=== PATIENT | male | born 1955 | race Caucasian/White ===

== ENCOUNTER 2016-06-22 07:06 | Day surgery (SDC) | payer OTHER ==
[~2016-06-22] VITALS: Ht 167.6 cm; Wt 85.2 kg
[2016-06-22 07:36] VITALS: Ht 167.6 cm; Wt 85.2 kg
[2016-06-22] MEDS ORDERED: CHLO25TA13 PO (07:54)
[2016-06-22] MEDS ORDERED: ASPI81TA3 PO (07:54)
[2016-06-22] MEDS ORDERED: AMLO-145 PO (07:54)
[2016-06-22] MEDS ORDERED: NEBI5TAB9 PO (07:54)
[2016-06-22] MEDS ORDERED: LISI10TA2 PO (07:54)
[2016-06-22 08:46] VITALS: BP 157/82; PULSE 60; RESP 18
[2016-06-22] MEDS ORDERED: MIDAZOLAM 1 MG/ML 2 ML INJ ONE ×2 (09:20→09:21)
[2016-06-22] MEDS ORDERED: FENTAnyl 50 MCG/ML VIAL ONE (09:20)
[2016-06-22 09:50] VITALS: BP 104/67; PULSE 50; RESP 18
--- NOTE | 2016-06-22 10:50 | GILP ---
DATE OF PROCEDURE: NAME OF PROCEDURES: Colonoscopy and polypectomy. SURGEON: Amberly Tello MD PREOPERATIVE DIAGNOSIS: Screening colonoscopy. POSTOPERATIVE DIAGNOSES 1. Colonoscopy all the way to the cecum. 2. Sigmoid colon polyp was removed using the snare and electrocautery. 3. Diverticulosis of the colon. 4. Internal hemorrhoids. 5. Poor prep making the exam suboptimal. INDICATION FOR THE PROCEDURE: Mr. Curly Ward is a 60-year-old male patient who was scheduled for s creening colonoscopy. The procedure and possible complications are well explained to the patient. The patient understood and consented to the procedure. DESCRIPTION OF PROCEDURE: Under the influence of fentanyl and Versed, the colonoscope was carefully introduced in the rectum and under direct vision, it was advanced all the way to the cecum. FINDINGS: The patient had poor prep making the exam suboptimal. He was noted to have a sigmoid col on polyp and it was removed using the snare and electrocautery. He had diverticulosis of the colon and internal hemorrhoids. He tolerated the procedure very well and there was no complication from the procedure. At the end o f the procedure, he was awake with stable vital signs and he was discharged home to the care of his family. IMPRESSION: 1. Colonoscopy all the way to the cecum. 2. Poor prep making the exam suboptimal. 3. Sigmoid colon polyp was removed using the snare and electrocautery. 4. Diverticulosis of the colon. 5. Internal hemorrhoids. PLAN: Await histopathology report. Because of the poor prep and suboptimal nature of the examinati on, would recommend repeat colonoscopy with better preparation in 2 years. Dictated By: AMBERLY MCKOY/CHET Conf#: [id number] DID#: [id number]
== END 2016-06-22 12:57 | disposition home or self-care (01) ==
LOC: GIL 07:06
PROVIDERS: ATTEND Internal Medicine Gastroenterology
DX: Z12.11 Encounter for screening for malignant neoplasm of colon (principal); K63.5 Polyp of colon; K57.90 Diverticulosis of intestine, part unspecified, without perforation or abscess without bleeding; K64.8 Other hemorrhoids; I10 Essential (primary) hypertension
CPT/HCPCS: 45385; 88305; J2250; J3010; Z7610

== ENCOUNTER 2017-05-26 06:18 | Day surgery (SDC) | END 2017-05-26 10:43 | disposition home or self-care (01) ==

== ENCOUNTER 2018-05-11 07:43 | Day surgery (SDC) | payer OTHER ==
[2018-05-11] VITALS (12 sets, daily range): BP systolic 102–148; BP diastolic 60–82; PULSE 48–58; RESP 11–16; Ht 167.6 cm; Wt 83.0 kg
[~2018-05-11] VITALS: Ht 167.6 cm; Wt 83.0 kg
[~2018-05-11 07:43] MED LIST: AMLO-218 PO; ASPI-903 PO; CHLO25TA2 PO; LIDOCAINE 2% (SDV) 5 ML INJ ONE; LISI40TA3 PO; METF500T24 PO; NEBI5TAB9 PO; SEVOFLURANE 15 MIN ONE
--- NOTE | 2018-05-11 09:23 | HPN ---
Date/Time of Note Date/Time of Note DATE: 05/11/18 TIME: 09:23 Interval H&P Admission Note Pt. seen H&P reviewed: No system changes GUS SMITH DPM May 11, 2018 09:23
--- NOTE | 2018-05-11 09:30 | PREAC ---
Date/Time of Note Date/Time of Note DATE: 05/11/18 TIME: 09:28 Anesthesia Eval and Record Evaluation Time Pre-Procedure Interview DATE: 05/11/18 TIME: 09:28 Age 62 Sex male NPO: 8 hrs Preoperative diagnosis left foot bunion deformity Planned procedure left foot bunionectomy, osteotomy Past Medical History Past Medical History: Includes Cardio: HTN Endo: Diabetes GI: Obesity Surgery & Anesthesia Issues No known issue Meds Anticoagulation: No Beta Inocencio within 24 hr: Yes Reported Medications Lisinopril* (Lisinopril*) 40 Mg Tablet, 40 MG PO DAILY, #30 TAB 05/26/17 Amlodipine Besylate* (Norvasc*) 10 Mg Tablet, 10 MG PO DAILY, TAB 05/26/17 Aspirin* (Aspirin* Chew) 81 Mg Tab.chew, 81 MG PO DAILY, TAB.CHEW 06/22/16 Chlorthalidone* (Chlorthalidone*) 25 Mg Tablet, 25 MG PO DAILY, TAB 06/22/16 Nebivolol* (Bystolic*) 5 Mg Tab, 5 MG PO DAILY, #30 TAB 06/22/16 Discontinued Reported Medications Metformin Hcl* (Metformin Hcl*) 500 Mg Tablet, 500 MG PO WITH BREAKFAST DINNE, #30 TAB 05/26/17 Meds reviewed: Yes Allergies Coded Allergies: No Known Allergy (Unverified , 05/11/18) Allergies Reviewed: Yes Labs/Studies Labs Reviewed: Reviewed by anesthesiologist test: N/A Studies: ECG, CXR Pre-procedure Exam Last vitals Vital Signs Date Temp Pulse Resp B/P (MAP) Pulse Ox O2 O2 Flow FiO2 Time Delivery Rate 05/11/18 97.0 55 16 148/82 97 Room Air 08:36 (104) Airway: Adequate mouth opening, Adequate thyromental dist Mallampati: Mallampati II Teeth: Normal Lung: Normal Heart: Normal ASA Physical Status ASA physical status: 2 Emergency: None Planned Anesthetic General/MAC: LMA Planned Pain Management Parenteral pain med Pre-operative Attestations Prior to commencing anesthesia and surgery, the patient was re-evaluated, there was verification of: *The patient's identity *The results of appropriate recent lab work and preoperative vital signs *The above evaluation not changing prior to induction *Anesthetic plan, risk benefits, alternative and complications discussed with patient/family; questions answered; patient/family understands, accepts and wishes to proceed. ELY MORAN May 11, 2018 09:30
[2018-05-11] MEDS ORDERED: PROPOFOL 20 ML ONE (09:35)
[2018-05-11] MEDS ORDERED: ROCURONIUM 50 MG INJ ONE (09:36)
[2018-05-11] MEDS ORDERED: DEXAMETHASONE 4 MG/ML 1 ML INJ ONE (09:40)
[2018-05-11] MEDS ORDERED: BUPIVACAINE 0.5% (SDV) 30 ML INJ ONE (09:40)
[2018-05-11] MEDS ORDERED: CEFAZOLIN 1 GM INJ ONE ×2 (09:54→10:56)
[2018-05-11] MEDS ORDERED: POVIDONE IODINE 10% 28.4 GM OINT ONE (10:16)
[2018-05-11] MEDS ORDERED: NEOSTIGMINE 3 MG/3 ML SYRINGE ONE (10:57)
[2018-05-11] MEDS ORDERED: GLYCOPYRROLATE 0.4 MG INJ ONE (10:58)
--- NOTE | 2018-05-11 11:04 | SIPON ---
Date/Time of Note Date/Time of Note DATE: 05/11/18 TIME: 11:01 Operative Report Preoperative Diagnosis Hallux abductal valgus with bunion left foot Postoperative Diagnosis Same Operation/Procedure Performed Osteotomy and bunionectomy with fixation first metatarsal left foot Derek osteotomy with fixation proximal phalanx hallux left foot and application of amniotic tissue act as she had active shield Surgeon see signature line assistant signal maintainer None Anesthesia: general Estimated blood loss: minimal (Minimal) Transfusion Required none Specimen Bone Grafts/Implants Zhenai screw headless 2.5 x 14 right stable 10 x 10 and active shield none Complications none GUS SMITH DPM May 11, 2018 11:04
--- NOTE | 2018-05-11 11:09 | PAC ---
Date/Time of Note Date/Time of Note DATE: 05/11/18 TIME: 11:08 Post-Anesthesia Notes Post-Anesthesia Note Last documented vital signs Vital Signs Date Temp Pulse Resp B/P (MAP) Pulse Ox O2 O2 Flow FiO2 Time Delivery Rate 05/11/18 97.0 55 16 148/82 97 Room Air 1108 (104) Activity: WNL Respiratory function: WNL Cardiovascular function: WNL Mental status: Baseline Pain reasonably controlled: Yes Hydration appropriate: Yes Nausea/Vomiting absent: Yes ELY MORAN May 11, 2018 11:09
[2018-05-11] MEDS ORDERED: FENTAnyl 50 MCG/ML VIAL IV PRN ×3 (11:30)
[2018-05-11] MEDS ORDERED: OXYCODONE/ACETAMINOPHEN (5/325) TAB PO PRN ×2 (11:30)
[2018-05-11] MEDS ORDERED: ALBUTEROL 0.083% (NEB) 2.5 MG/3 ML AMP HHN PRN (11:30)
[2018-05-11] MEDS ORDERED: MEPERIDINE 25 MG INJ IV PRN (11:30)
[2018-05-11] MEDS ORDERED: LABETALOL HCL 20MG INJ IV PRN (11:30)
[2018-05-11] MEDS ORDERED: hydrALAzine 20 MG INJ IV PRN (11:30)
[2018-05-11] MEDS ORDERED: HYDROmorphONE 1 MG/5 ML IV SYRINGE IV PRN ×3 (11:30)
[2018-05-11] MEDS ORDERED: METOCLOPRAMIDE 10 MG INJ IV PRN (11:30)
[2018-05-11] MEDS ORDERED: KETOROLAC 30 MG INJ IV PRN (11:30)
[2018-05-11] MEDS ORDERED: ONDANSETRON 4 MG INJ IV PRN (11:30)
[2018-05-11] MEDS ORDERED: EPHEDrine SULFATE 50 MG/5 ML SYG IV PRN (11:30)
[2018-05-11] MEDS ORDERED: DIPHENHYDRAMINE 50 MG INJ IV PRN (11:30)
--- NOTE | 2018-05-11 14:06 | PREOPHP ---
DATE OF ADMISSION: 05/11/2018 PODIATRIC HISTORY AND PHYSICAL: The patient is being admitted to the hospital for elective foot surgery, palliative treatment unsuccessful. Patient has been explained surgery, complications, alternatives and elected to have elective foot surgery. The patient points to the first metatarsophalangeal joint of the left foot. ALLERGIES: THE PATIENT DENIES. MEDICATIONS: Patient taking medication for high blood pressure and diabetes. REVIEW OF SYSTEMS: Negative heart, lung, liver, kidney, thyroid. See any other pertinent history and upper extremity physical exam by Dr. García. PAST MEDICAL HISTORY: Diabetes, being treated and is controlled. SOCIAL HISTORY: Negative for smoking and alcohol. PHYSICAL EXAMINATION: LOEW EXTREMITIES: Shows the DP and PT equal and regular. NEUROLOGICAL: Negative for pathology. DERMATOLOGICAL: Negative for pathology. MUSCULOSKELETAL: X-ray findings show a hallux abductovalgus with bunion, left foot. FINAL DIAGNOSES: Hallux adductus valgus, left foot. Dictated By: GUS COMER/CHET Conf#: [id number] DID#: [id number] MTDD
--- NOTE | 2018-05-11 22:28 | OPR ---
DATE OF OPERATION: 05/11/2018 PREOPERATIVE DIAGNOSIS: Hallux abductovalgus with bunion, left foot. POSTOPERATIVE DIAGNOSIS: Hallux abductovalgus with bunion, left foot. SURGERY: Osteotomy and bunionectomy with fixation, first metatarsal, left foot; Derek osteotomy with fixation proximal phalanx, hallux, left foot; application of Actishield. SURGEON: Gus Brink DPM DESCRIPTION OF PROCEDURE: The patient was brought to the surgical suite, placed in the supine position. The patient is under general anesthesia with pneumatic cuff at midthigh and sterile prep and drape. Findings were consistent with the pre and postoperative diagnosis. The first incision is a dorsomedial longitudinal incision over the 1st metatarsophalangeal joint. Using sharp and blunt dissection, the incision was carried deep. The head of 1st metatarsal was freed of its attachment and the medial eminence was resected. Then, a horizontal V-osteotomy centered in the center of the medial aspect of the 1st metatarsal head with the apex distal and base going proximal to different angles of 60 degrees. Those cuts were through and through and the capital fragment was then moved laterally, impacted the shaft. A K-wire was placed across the shaft and holds the osteotomy in placed and then a [employer] screw, 2.5 x 14 mm, was placed across the K-wire and the K-wire was removed. The osteotomy site was held firm and overhang on the first metatarsal was resected and the first metatarsal was rasped smooth. Next, the attention was turned to the proximal phalanx, which was freed of its attachment at the shaft and an Derek osteotomy was performed with the apex going laterally and the base medially. Its widest part was approximately 3.5 mm. The distal aspect was then impacted upon the base of the proximal phalanx an 8 x 8 [employer] staple was used to stabilize. The area was then cleansed and preoperative condition having been relieved, the area then had a biogenic by [employer] placed over the 1st metatarsal and base of the proximal phalanx and the area was cleansed, and preoperative condition having been relieved, the area was coaptated using 3-0 Vicryl and the skin was coaptated using 5-0 Nylon. The area was then injected with 0.5% Marcaine to prolong anesthesia and a dressing of 1/2-inch Steri- Strips, Betadine ointment, 4 x 4's impregnated with Betadine solution and Demetria with an outer layer of Coban made into a semi-compressive dressing. The patient tolerated surgery well and was returned to recovery room in satisfactory condition. Dictated By: GUS COMER/CHET Conf#: [id number] DID#: [id number] MTDD
== END 2018-05-11 12:50 | disposition home or self-care (01) ==
LOC: SDS 07:43
PROVIDERS: ATTEND Podiatrist
DX: M20.12 Hallux valgus (acquired), left foot (principal); M21.612 Bunion of left foot; I10 Essential (primary) hypertension; E11.9 Type 2 diabetes mellitus without complications
CPT/HCPCS: 28299; 82962; 88304; 88311; J0690; J2710; J3010; Z7512; Z7610; J1100